=== PATIENT | male | born 1960 ===

== ENCOUNTER 2020-03-14 12:08 | Emergency (ER) | payer SELFPAY ==
[~2020-03-14] VITALS: Ht 175.3 cm; Wt 99.8 kg
[2020-03-14 12:09] VITALS: Ht 175.3 cm; Wt 99.8 kg
[2020-03-14 12:40] VITALS: BP 142/104
== END 2020-03-14 12:40 | disposition home or self-care (01) ==
LOC: ED 12:08
DX: Z03.818 Encounter for observation for suspected exposure to other biological agents ruled out (principal)
CPT/HCPCS: U0003-CS